=== PATIENT | female | born 1930 | race Hispanic/Latino ===

== ENCOUNTER 2017-03-17 17:23 | Inpatient (IN) | payer MEDICARE ==
[~2017-03-17] VITALS: Ht 139.7 cm; Wt 53.2 kg
[2017-03-17 17:48] LABS: BASOPHILS % (AUTO) 0.5 % (0.0-5.0); HEMATOCRIT 42.4 % (36-48); LYMPHOCYTES % (AUTO) 8.4 % (21.0-51.0); MEAN CORPUSCULAR HGB CONC 33.4 g/dL (32.0-36.0); MONOCYTES % (AUTO) 5.8 % (3.0-13.0); NEUTROPHILS % (AUTO) 85.3 % (40.0-77.0); PLATELET COUNT (AUTO) 252 K/uL (130-400); RED BLOOD CELL COUNT(AUTO) 4.87 MIL/uL (4.00-5.50); RED CELL DISTRIBUTION WIDTH 13.9 % (11.0-15.5); WHITE BLOOD COUNT (AUTO) 9.9 K/uL (4.8-10.8)
[2017-03-17 18:01] LABS: CARBON DIOXIDE 26 mmol/L (21-32); CHLORIDE 99 mmol/L (101-111); CREATININE 0.9 mg/dL (0.5-1.5); GLOMERULAR FILTR. RATE CALC 63 mL/min (>60); GLUCOSE,RANDOM 197 mg/dL (70-105); POTASSIUM 4.3 mmol/L (3.5-5.1); SODIUM SERUM 133 mmol/L (136-145); UREA NITROGEN, BLOOD 15 mg/dL (7-18)
[2017-03-17 18:05] LABS: INR 1.02 (0.85-1.15); PARTIAL THROMBOPLASTIN TIME 29.9 SEC (26.3-35.5); PROTHROMBIN TIME 10.7 SEC (9.6-11.6)
[2017-03-17 18:16] LABS: ALANINE AMINOTRANSFERASE 19 U/L (12-78); ALBUMIN 3.6 g/dL (3.5-5.0); ASPARTATE AMINOTRANSFERASE 24 U/L (10-37); BILIRUBIN,TOTAL 0.4 mg/dL (0.2-1.0); CREATINE KINASE MB < 0.5 ng/mL (0.5-3.6); CREATINE KINASE, TOTAL 82 U/L (21-232); TOTAL PROTEIN, SERUM 7.5 g/dL (6.0-8.3)
[2017-03-17 18:17] LABS: APPEARANCE,URINE SL CLOUDY (CLEAR); BILIRUBIN,URINE NEGATIVE (NEGATIVE); COLOR,URINE YELLOW (YELLOW); GLUCOSE, URINE (UA) NEGATIVE (NEGATIVE); KETONES,URINE 5 mg/dL (NEGATIVE); LEUKOCYTE ESTERASE ,URINE NEGATIVE (NEGATIVE); NITRATE,URINE NEGATIVE (NEGATIVE); OCCULT BLOOD,URINE NEGATIVE (NEGATIVE); PROTEIN,URINE TRACE (NEGATIVE)
[2017-03-17 18:45] LABS: BACTERIA,URINE Moderate /HPF (None Seen); RBC,URINE 0-1 /HPF (0-1)
[2017-03-17 18:46] LABS: MUCUS,URINE Few LPF (None Seen); SQUAMOUS EPITHELIAL CELL,UR Rare /LPF (0-2)
[2017-03-17] MEDS ORDERED: CEFTRIAXONE SODIUM 1 GM ONE (19:35)
[2017-03-17] MEDS ORDERED: AZITHROMYCIN 250 MG TABLET PO ONE (19:36)
[2017-03-17 22:40] VITALS: BP 144/88
[2017-03-17] MEDS ORDERED: IPRATROPIUM/ALBUTEROL SULFATE 3 ML SOLUTION IH ONE (23:28)
[2017-03-18] MEDS ORDERED: IPRATROPIUM/ALBUTEROL SULFATE 3 ML SOLUTION IH ONE ×2 (01:49→06:17)
[2017-03-18 04:00] VITALS: BP 128/55
[2017-03-18 06:06] LABS: HEMATOCRIT 36.4 % (36-48); MEAN CORPUSCULAR HEMOGLOBIN 29.2 pg (27.0-33.0); MEAN CORPUSCULAR HGB CONC 33.8 g/dL (32.0-36.0); MEAN CORPUSCULAR VOLUME 86.3 fL (79-99); PLATELET COUNT (AUTO) 224 K/uL (130-400); RED BLOOD CELL COUNT(AUTO) 4.22 MIL/uL (4.00-5.50); RED CELL DISTRIBUTION WIDTH 13.8 % (11.0-15.5)
[2017-03-18 06:16] LABS: HEMOGLOBIN A1C 5.9 % (4.0-6.0)
[2017-03-18 06:34] LABS: CARBON DIOXIDE 25 mmol/L (21-32); CHLORIDE 105 mmol/L (101-111); CREATINE KINASE MB 0.5 ng/mL (0.5-3.6); CREATINE KINASE, TOTAL 63 U/L (21-232); CREATININE 0.7 mg/dL (0.5-1.5); GLOMERULAR FILTR. RATE CALC 84 mL/min (>60); GLUCOSE,RANDOM 98 mg/dL (70-105); MYOGLOBIN 49 ng/mL (10-92); POTASSIUM 3.3 mmol/L (3.5-5.1); SODIUM SERUM 138 mmol/L (136-145); TROPONIN I < 0.04 ng/mL (0.00-0.06); UREA NITROGEN, BLOOD 14 mg/dL (7-18)
[2017-03-18] MEDS ORDERED: POTASSIUM CHLORIDE 20 MEQ ERTAB PO PRN (07:15)
[2017-03-18] MEDS ORDERED: ACETAMINOPHEN 325 MG TAB PO PRN (07:15)
[2017-03-18] MEDS ORDERED: POTASSIUM CHLORIDE 10% ELIXIR 20 MEQ/15 ML UDCUP PO PRN (07:15)
[2017-03-18] MEDS ORDERED: LACTULOSE 20 GM/30 ML UDCUP PO PRN (07:15)
[2017-03-18 08:00] VITALS: BP 134/62
[2017-03-18] MEDS: FAMOTIDINE 20MG TAB 20 MG TAB PO SCH ×2 (09:17→20:08)
[2017-03-18] MEDS: ASPIRIN 81MG TAB.CHEW PO SCH (09:17)
[2017-03-18] MEDS: IPRATROPIUM/ALBUTEROL SULFATE 3 ML SOLUTION IH SCH ×4 (09:49→22:00)
[2017-03-18 12:00] VITALS: BP 107/44
[2017-03-18] MEDS: LACTATED RINGERS 1000ML 1,000 ML IV SCH ×2 (15:55→23:14)
[2017-03-18 16:00] VITALS: BP 116/49
[2017-03-18] MEDS: POTASSIUM CHLORIDE 20MEQ/100ML 100 ML IV PRN ×2 (16:02→18:23)
[2017-03-18] MEDS: LIDOCAINE HCL-MPF 1% 2ML VIAL IJ PRN ×2 (16:02→18:23)
[2017-03-18] MEDS: GUAIFENESIN-DM 200/20 MG 10 ML PO PRN (18:23)
[2017-03-18] MEDS: CEFTRIAXONE SODIUM 1 GM IVP SCH (18:26)
[2017-03-18 20:00] VITALS: BP 146/75
[2017-03-18] MEDS: AZITHROMYCIN 500MG+NS 250ML 250 ML IV SCH (20:07)
[2017-03-19] VITALS (7 sets, daily range): BP systolic 127–156; BP diastolic 69–113
[2017-03-19] MEDS: GUAIFENESIN-DM 200/20 MG 10 ML PO PRN ×3 (01:50→15:24)
[2017-03-19] MEDS: IPRATROPIUM/ALBUTEROL SULFATE 3 ML SOLUTION IH SCH ×2 (02:00→06:00)
[2017-03-19 06:27] LABS: HEMATOCRIT 36.5 % (36-48); MEAN CORPUSCULAR HEMOGLOBIN 29.1 pg (27.0-33.0); MEAN CORPUSCULAR HGB CONC 33.7 g/dL (32.0-36.0); MEAN CORPUSCULAR VOLUME 86.3 fL (79-99); PLATELET COUNT (AUTO) 218 K/uL (130-400); RED BLOOD CELL COUNT(AUTO) 4.23 MIL/uL (4.00-5.50); RED CELL DISTRIBUTION WIDTH 14.1 % (11.0-15.5); WHITE BLOOD COUNT (AUTO) 7.9 K/uL (4.8-10.8)
[2017-03-19 06:45] LABS: BILIRUBIN,TOTAL 0.4 mg/dL (0.2-1.0); CREATININE 0.8 mg/dL (0.5-1.5); MAGNESIUM 2.2 mg/dL (1.80-2.40); POTASSIUM 3.9 mmol/L (3.5-5.1); TOTAL PROTEIN, SERUM 6.8 g/dL (6.0-8.3)
[2017-03-19] MEDS ORDERED: IPRATROPIUM/ALBUTEROL SULFATE 3 ML SOLUTION IH PRN (07:45)
[2017-03-19] MEDS: BENZONATATE 100 MG CAPSULE PO SCH ×3 (08:56→22:33)
[2017-03-19] MEDS: FAMOTIDINE 20MG TAB 20 MG TAB PO SCH ×2 (08:57→21:08)
[2017-03-19] MEDS: GUAIFENESIN/DEXTROMETHORPHAN 1 EACH TAB.SR.12H PO SCH ×3 (08:57→22:33)
[2017-03-19] MEDS: ASPIRIN 81MG TAB.CHEW PO SCH (08:57)
[2017-03-19] MEDS: ENOXAPARIN SODIUM 40 MG/0.4 ML SYRINGE SQ SCH (08:58)
[2017-03-19 09:07] LABS: BAND NEUTROPHILS % (MANUAL) 1 % (0-2); EOSINOPHILS % (MANUAL) 4 % (1-6); LYMPHOCYTES % (MANUAL) 28 % (22-44); MONOCYTES % (MANUAL) 7 % (2-9); SEGMENTED NEUTROPHILS % 60 % (40-70)
[2017-03-19 09:08] LABS: MAN.DIFF COMMENT-IMPRESSION MANUAL DIFFERENTIAL
[2017-03-19] MEDS: CEFTRIAXONE SODIUM 1 GM IVP SCH (19:18)
[2017-03-19] MEDS: AZITHROMYCIN 500MG+NS 250ML 250 ML IV SCH (21:08)
[2017-03-19] MEDS: ACETAMINOPHEN 325 MG TAB PO PRN (23:12)
[2017-03-20 04:25] VITALS: BP 134/64
[2017-03-20] MEDS: ACETAMINOPHEN 325 MG TAB PO PRN ×2 (06:02→21:35)
[2017-03-20 08:12] VITALS: BP 125/53
[2017-03-20] MEDS: FAMOTIDINE 20MG TAB 20 MG TAB PO SCH ×2 (08:28→20:11)
[2017-03-20] MEDS: GUAIFENESIN/DEXTROMETHORPHAN 1 EACH TAB.SR.12H PO SCH ×2 (08:28→20:11)
[2017-03-20] MEDS: BENZONATATE 100 MG CAPSULE PO SCH ×3 (08:28→20:11)
[2017-03-20] MEDS: ASPIRIN 81MG TAB.CHEW PO SCH (08:28)
[2017-03-20] MEDS: ENOXAPARIN SODIUM 40 MG/0.4 ML SYRINGE SQ SCH (08:29)
[2017-03-20] MEDS: IPRATROPIUM 0.5 MG/2.5 ML INH IH SCH ×3 (11:26→23:29)
[2017-03-20] MEDS: ACETYLCYSTEINE 20% 200MG/ML 4ML VIAL IH SCH ×2 (11:26→18:48)
[2017-03-20 12:00] VITALS: BP 112/57
[2017-03-20 16:33] VITALS: BP 127/71
[2017-03-20] MEDS: CEFTRIAXONE SODIUM 1 GM IVP SCH (20:10)
[2017-03-20] MEDS: AZITHROMYCIN 500MG+NS 250ML 250 ML IV SCH (20:10)
[2017-03-20 20:26] VITALS: BP 124/58
[2017-03-20 23:20] VITALS: BP 129/54
[2017-03-21 03:56] VITALS: BP 133/71
[2017-03-21] MEDS: IPRATROPIUM 0.5 MG/2.5 ML INH IH SCH (06:37)
[2017-03-21 08:00] VITALS: BP 143/89
[2017-03-21] MEDS ORDERED: CEFTRIAXONE 1GM/D5W 50ML 50 ML IV SCH (08:00)
[2017-03-21] MEDS ORDERED: CEFTRIAXONE SODIUM 1 GM IVP SCH (08:00)
[2017-03-21] MEDS: FAMOTIDINE 20MG TAB 20 MG TAB PO SCH (10:19)
[2017-03-21] MEDS: ASPIRIN 81MG TAB.CHEW PO SCH (10:20)
[2017-03-21] MEDS: GUAIFENESIN/DEXTROMETHORPHAN 1 EACH TAB.SR.12H PO SCH (10:20)
[2017-03-21] MEDS: BENZONATATE 100 MG CAPSULE PO SCH (10:20)
[2017-03-21] MEDS: ENOXAPARIN SODIUM 40 MG/0.4 ML SYRINGE SQ SCH (10:23)
== END 2017-03-21 12:00 | disposition home or self-care (01) | DRG 689 ==
LOC: EDH 17:23 → EDHIP 19:35 → OBSVTOIN 19:35 → 3AH 22:09
PROVIDERS: ADMIT Family Medicine; ATTEND Family Medicine
DX: N39.0 Urinary tract infection, site not specified (principal); J18.9 Pneumonia, unspecified organism; I69.354 Hemiplegia and hemiparesis following cerebral infarction affecting left non-dominant side; D64.9 Anemia, unspecified; E86.0 Dehydration; M41.9 Scoliosis, unspecified; R32 Unspecified urinary incontinence; B95.5 Unspecified streptococcus as the cause of diseases classified elsewhere; Z91.81 History of falling; Z90.710 Acquired absence of both cervix and uterus; Z87.440 Personal history of urinary (tract) infections; Z83.3 Family history of diabetes mellitus; Z82.49 Family history of ischemic heart disease and other diseases of the circulatory system
CPT/HCPCS: 36415; 71045; 80048; 80053; 81001; 82550; 82553; 83036; 83605; 83735; 83874; 84484; 85025; 85027; 85610; 85730; 87040; 87088; 87186; 87804; 92610; 93005; 94640; 94664; A4218; J0456; J0696; J1650; J3480; J3490; J7120; J7608

== ENCOUNTER 2017-05-11 17:30 | Emergency (ER) | payer MEDICARE ==
[2017-05-11] MEDS ORDERED: HYDROCODONE/ACETAMINOPHEN 5/325 MG TAB ONE (18:40)
[2017-05-11] MEDS ORDERED: TETANUS/DIPHTHERIA TOXOID [ADULT] 0.5 ML VIAL IM ONE (18:41)
== END 2017-05-11 21:38 | disposition home or self-care (01) ==
LOC: EDH 17:30
DX: S00.83XA Contusion of other part of head, initial encounter (principal); Z86.73 Personal history of transient ischemic attack (TIA), and cerebral infarction without residual deficits; W18.39XA Other fall on same level, initial encounter; Y93.01 Activity, walking, marching and hiking; Y92.89 Other specified places as the place of occurrence of the external cause; Y99.8 Other external cause status
CPT/HCPCS: 70450; 70486; 72125; 73590; 90471; 90714

== ENCOUNTER 2018-02-10 15:03 | Emergency (ER) | payer MEDICARE ==
[2018-02-10 17:46] LABS: EOSINOPHILS % (AUTO) 3.1 % (0.0-8.0); HEMATOCRIT 40.3 % (36-48); LYMPHOCYTES % (AUTO) 26.4 % (21.0-51.0); MEAN CORPUSCULAR HEMOGLOBIN 29.2 pg (27.0-33.0); MEAN CORPUSCULAR HGB CONC 33.8 g/dL (32.0-36.0); MEAN CORPUSCULAR VOLUME 86.1 fL (79-99); MONOCYTES % (AUTO) 11.3 % (3.0-13.0); NEUTROPHILS % (AUTO) 58.2 % (40.0-77.0); NUCLEATED RED BLOOD CELLS 0.1 % (0.0-0.19); PLATELET COUNT (AUTO) 241 K/uL (130-400); RED BLOOD CELL COUNT(AUTO) 4.68 MIL/uL (4.00-5.50); RED CELL DISTRIBUTION WIDTH 14.1 % (11.0-15.5); WHITE BLOOD COUNT (AUTO) 8.7 K/uL (4.8-10.8)
[2018-02-10 17:55] LABS: CREATININE 0.9 mg/dL (0.5-1.5)
[2018-02-10 18:00] LABS: ALBUMIN 3.1 g/dL (3.5-5.0); BILIRUBIN,TOTAL 0.5 mg/dL (0.2-1.0); TOTAL PROTEIN, SERUM 7.2 g/dL (6.0-8.3)
[2018-02-10 18:24] LABS: APPEARANCE,URINE Cloudy (CLEAR); BILIRUBIN,URINE Negative (NEGATIVE); COLOR,URINE Dark Yellow (YELLOW); GLUCOSE, URINE (UA) Negative (NEGATIVE); KETONES,URINE Trace mg/dL (NEGATIVE); LEUKOCYTE ESTERASE ,URINE Small (NEGATIVE); NITRATE,URINE Negative (NEGATIVE); OCCULT BLOOD,URINE Negative (NEGATIVE); PROTEIN,URINE Negative (NEGATIVE)
[2018-02-10 19:53] LABS: BACTERIA,URINE Few /HPF (None Seen); RBC,URINE None Seen /HPF (0-1)
== END 2018-02-10 20:43 | disposition home or self-care (01) ==
LOC: EDH 15:03
DX: S80.01XA Contusion of right knee, initial encounter (principal); R05 Cough; W18.39XA Other fall on same level, initial encounter; Y93.89 Activity, other specified; Y92.89 Other specified places as the place of occurrence of the external cause; Y99.8 Other external cause status
CPT/HCPCS: 36415; 71045; 73502; 73562; 80053; 81001; 85025; 87088; 87804

== ENCOUNTER 2020-05-06 17:59 | Inpatient (IN) | payer MEDICARE ==
[~2020-05-06] VITALS: Ht 154.9 cm; Wt 52.3 kg
[2020-05-06] MEDS ORDERED: 0.9%NACL 1000ML 1,000 ML IV ONE (18:49)
[2020-05-06 18:51] LABS: BASOPHILS % (AUTO) 0.4 % (0.0-5.0); EOSINOPHILS % (AUTO) 0.4 % (0.0-8.0); HEMATOCRIT 44.2 % (36-48); LYMPHOCYTES % (AUTO) 17.7 % (21.0-51.0); MEAN CORPUSCULAR HEMOGLOBIN 29.1 pg (27.0-33.0); MEAN CORPUSCULAR HGB CONC 32.1 g/dL (32.0-36.0); MEAN CORPUSCULAR VOLUME 90.6 fL (79-99); MONOCYTES % (AUTO) 7.1 % (3.0-13.0); PLATELET COUNT (AUTO) 273 K/uL (130-400); RED BLOOD CELL COUNT(AUTO) 4.88 MIL/uL (4.00-5.50); RED CELL DISTRIBUTION WIDTH 13.3 % (11.0-15.5); WHITE BLOOD COUNT (AUTO) 11.2 K/uL (4.8-10.8)
[2020-05-06 19:01] LABS: INR 1.01 (0.85-1.15)
[2020-05-06 19:05] LABS: ALANINE AMINOTRANSFERASE 11 U/L (12-78); ALBUMIN 2.5 g/dL (3.5-5.0); ASPARTATE AMINOTRANSFERASE 14 U/L (10-37); BILIRUBIN,TOTAL 0.2 mg/dL (0.2-1.0); CARBON DIOXIDE 21 mmol/L (21-32); CHLORIDE 113 mmol/L (101-111); CREATINE KINASE, TOTAL 36 U/L (21-232); CREATININE 0.4 mg/dL (0.5-1.5); GLOMERULAR FILTR. RATE CALC 160 mL/min (>60); GLUCOSE,RANDOM 76 mg/dL (70-105); SODIUM SERUM 147 mmol/L (136-145); TOTAL PROTEIN, SERUM 5.7 g/dL (6.0-8.3); UREA NITROGEN, BLOOD 18 mg/dL (7-18)
[2020-05-06 19:10] LABS: POTASSIUM 2.8 mmol/L (3.5-5.1)
[2020-05-06 19:15] LABS: AMMONIA < 3 umol/L (11-32)
[2020-05-06 19:21] LABS: B-TYPE NATRIURETIC PEPTIDE 164 pg/mL (0-100)
[2020-05-06 19:28] LABS: APPEARANCE,URINE Clear (CLEAR); BILIRUBIN,URINE Negative (NEGATIVE); COLOR,URINE Dark Yellow (YELLOW); GLUCOSE, URINE (UA) Negative (NEGATIVE); KETONES,URINE Negative (NEGATIVE); LEUKOCYTE ESTERASE ,URINE Small (NEGATIVE); NITRATE,URINE Negative (NEGATIVE); OCCULT BLOOD,URINE Negative (NEGATIVE); PROTEIN,URINE Negative (NEGATIVE)
[2020-05-06] MEDS ORDERED: POTASSIUM BICARB/CIT AC 25 MEQ TABLET.EFF ONE (19:49)
[2020-05-06 19:54] LABS: COARSE GRANULAR CASTS,URINE 0-2 /LPF (None Seen); HYALINE CASTS, URINE 0-1 /LPF (0-1 /LPF)
[2020-05-06 19:55] LABS: AMORPHOUS SEDIMENT,UR Few /LPF (None Seen); BACTERIA,URINE Moderate /HPF (None Seen)
[2020-05-06 19:57] LABS: MUCUS,URINE Rare LPF (None Seen); RBC,URINE 0-1 /HPF (0-1)
[2020-05-06] MEDS ORDERED: 0.9%NACL 1000ML 1,000 ML IV SCH (20:00)
[2020-05-06] MEDS ORDERED: TEMAZEPAM 7.5 MG CAPSULE PO PRN (20:00)
[2020-05-06] MEDS ORDERED: ACETAMINOPHEN 325 MG TAB PO PRN ×2 (20:00)
[2020-05-06] MEDS ORDERED: ONDANSETRON 4MG INJ IV PRN (20:00)
[2020-05-06] MEDS: D5W-1/2 NS/20MEQ KCL 1,000 ML IV SCH (21:00)
[2020-05-06] MEDS ORDERED: POTASSIUM CHLORIDE 20MEQ/10ML 20 MEQ in DEXTROSE 5 %-0.45 % NACL 1,000 ML IV SCH (21:00)
[2020-05-06] MEDS: FAMOTIDINE 20MG TAB PO SCH (21:00)
[2020-05-06] MEDS: ZOSYN 3.375GM+NS 50ML 50 ML IV SCH (21:00)
[2020-05-06] MEDS ORDERED: CEFTRIAXONE 1G VIAL ONE (22:50)
[2020-05-07] VITALS (7 sets, daily range): BP systolic 80–163; BP diastolic 42–63
[2020-05-07] MEDS ORDERED: ERGO500093 PO (02:01)
[2020-05-07] MEDS ORDERED: ASCO100031 PO (02:01)
[2020-05-07] MEDS ORDERED: AEC81 PO (02:01)
[2020-05-07] MEDS ORDERED: juice plus PO (02:01)
[2020-05-07] MEDS: ZOSYN 3.375GM+NS 50ML 50 ML IV SCH ×3 (04:38→20:12)
[2020-05-07] MEDS: ENOXAPARIN SODIUM 40 MG/0.4 ML SYRINGE SQ SCH (09:16)
[2020-05-07] MEDS: D5W-1/2 NS/20MEQ KCL 1,000 ML IV SCH (14:47)
[2020-05-07] MEDS: FAMOTIDINE 20MG TAB PO SCH (20:12)
[2020-05-08] VITALS: BP 152/91
[2020-05-08] MEDS: D5W-1/2 NS/20MEQ KCL 1,000 ML IV SCH ×2 (03:27→21:42)
[2020-05-08 04:00] VITALS: BP 148/85
[2020-05-08] MEDS: ZOSYN 3.375GM+NS 50ML 50 ML IV SCH ×3 (05:13→21:42)
[2020-05-08 05:46] LABS: BASOPHILS % (AUTO) 0.6 % (0.0-5.0); EOSINOPHILS % (AUTO) 7.5 % (0.0-8.0); HEMATOCRIT 35.6 % (36-48); LYMPHOCYTES % (AUTO) 33.4 % (21.0-51.0); MEAN CORPUSCULAR HEMOGLOBIN 28.9 pg (27.0-33.0); MEAN CORPUSCULAR HGB CONC 32.3 g/dL (32.0-36.0); MEAN CORPUSCULAR VOLUME 89.4 fL (79-99); MONOCYTES % (AUTO) 13.9 % (3.0-13.0); NEUTROPHILS % (AUTO) 44.5 % (40.0-77.0); PLATELET COUNT (AUTO) 219 K/uL (130-400); RED BLOOD CELL COUNT(AUTO) 3.98 MIL/uL (4.00-5.50); RED CELL DISTRIBUTION WIDTH 13.4 % (11.0-15.5); WHITE BLOOD COUNT (AUTO) 6.9 K/uL (4.8-10.8)
[2020-05-08 06:00] LABS: B-TYPE NATRIURETIC PEPTIDE 256 pg/mL (0-100)
[2020-05-08 06:22] LABS: ALBUMIN 2.6 g/dL (3.5-5.0); BILIRUBIN,TOTAL 0.3 mg/dL (0.2-1.0); CREATININE 0.7 mg/dL (0.5-1.5); POTASSIUM 4.3 mmol/L (3.5-5.1); TOTAL PROTEIN, SERUM 6.1 g/dL (6.0-8.3)
[2020-05-08 08:00] VITALS: BP 157/59
[2020-05-08] MEDS: ENOXAPARIN SODIUM 40 MG/0.4 ML SYRINGE SQ SCH (09:49)
[2020-05-08] MEDS ORDERED: GUAIFENESIN-CODEINE 5 ML SYRUP PO PRN (11:45)
[2020-05-08] MEDS ORDERED: IPRATROPIUM/ALBUTEROL SULFATE 3 ML SOLUTION IH PRN (11:45)
[2020-05-08 12:00] VITALS: BP 161/56
[2020-05-08 16:00] VITALS: BP 146/60
[2020-05-08 20:00] VITALS: BP 158/58
[2020-05-08] MEDS: FAMOTIDINE 20MG TAB PO SCH (21:42)
[2020-05-09] VITALS: BP 165/61
[2020-05-09 04:00] VITALS: BP 154/68
[2020-05-09] MEDS: ZOSYN 3.375GM+NS 50ML 50 ML IV SCH ×2 (05:10→13:27)
[2020-05-09 05:37] LABS: BASOPHILS % (AUTO) 0.7 % (0.0-5.0); EOSINOPHILS % (AUTO) 7.5 % (0.0-8.0); HEMATOCRIT 36.7 % (36-48); LYMPHOCYTES % (AUTO) 32.1 % (21.0-51.0); MEAN CORPUSCULAR HEMOGLOBIN 28.5 pg (27.0-33.0); MEAN CORPUSCULAR HGB CONC 31.3 g/dL (32.0-36.0); MEAN CORPUSCULAR VOLUME 91.1 fL (79-99); MONOCYTES % (AUTO) 13.1 % (3.0-13.0); NEUTROPHILS % (AUTO) 46.3 % (40.0-77.0); PLATELET COUNT (AUTO) 232 K/uL (130-400); RED BLOOD CELL COUNT(AUTO) 4.03 MIL/uL (4.00-5.50); RED CELL DISTRIBUTION WIDTH 13.4 % (11.0-15.5); WHITE BLOOD COUNT (AUTO) 7.4 K/uL (4.8-10.8)
[2020-05-09 05:56] LABS: ALBUMIN 2.8 g/dL (3.5-5.0); BILIRUBIN,TOTAL 0.2 mg/dL (0.2-1.0); CREATININE 0.7 mg/dL (0.5-1.5); POTASSIUM 4.1 mmol/L (3.5-5.1); TOTAL PROTEIN, SERUM 6.5 g/dL (6.0-8.3)
[2020-05-09 08:00] VITALS: BP 132/59
[2020-05-09] MEDS: ENOXAPARIN SODIUM 40 MG/0.4 ML SYRINGE SQ SCH (09:11)
[2020-05-09 12:00] VITALS: BP 111/60
[2020-05-09] MEDS ORDERED: SULF1TAB41 PO (15:02)
[2020-08-20] MEDS ORDERED: CEPH500B PO (17:53)
== END 2020-05-09 17:40 | disposition home or self-care (01) | DRG 689 ==
LOC: EDH 17:59 → EDHIP 19:54 → 3DH 05-07 01:12
PROVIDERS: ADMIT Internal Medicine; ATTEND Internal Medicine
DX: N39.0 Urinary tract infection, site not specified (principal); G93.41 Metabolic encephalopathy; E87.1 Hypo-osmolality and hyponatremia; E44.0 Moderate protein-calorie malnutrition; I69.354 Hemiplegia and hemiparesis following cerebral infarction affecting left non-dominant side; M00.00 Staphylococcal arthritis, unspecified joint; E87.6 Hypokalemia; E87.8 Other disorders of electrolyte and fluid balance, not elsewhere classified; E11.9 Type 2 diabetes mellitus without complications; B95.8 Unspecified staphylococcus as the cause of diseases classified elsewhere; Z20.822 Contact with and (suspected) exposure to COVID-19; Z68.21 Body mass index [BMI] 21.0-21.9, adult; Z90.710 Acquired absence of both cervix and uterus; Z82.3 Family history of stroke; Z82.0 Family history of epilepsy and other diseases of the nervous system; Z82.5 Family history of asthma and other chronic lower respiratory diseases; Z82.49 Family history of ischemic heart disease and other diseases of the circulatory system
CPT/HCPCS: 36415; 70450; 80053; 81001; 82140; 82550; 83605; 83880; 84132; 84484; 85025; 85610; 85730; 87040; 87077; 87088; 87186; 87426; 93005; 94664; G0378; J0696; J1650; J2543; J3480; J7030; J7042; U0003